=== PATIENT | male | born 1990 | race American Indian/Alaskan Native ===

== ENCOUNTER 2022-01-26 17:59 | Emergency (ER) | payer SELFPAY ==
[2022-01-26 19:38] VITALS: BP 129/87
== END 2022-01-26 23:50 | disposition left against medical advice (07) ==
LOC: ED 17:59
DX: K08.89 Other specified disorders of teeth and supporting structures (principal); Z53.21 Procedure and treatment not carried out due to patient leaving prior to being seen by health care provider